=== PATIENT | female | born 2000 | race Caucasian/White ===

== ENCOUNTER 2022-04-23 20:05 | Emergency (ER) | payer BC ==
[~2022-04-23] VITALS: Ht 180.3 cm; Wt 73.0 kg
[2022-04-23 20:40] VITALS: BP 153/84
== END 2022-04-24 01:48 | disposition left against medical advice (07) ==
LOC: ER 20:05
DX: Z53.21 Procedure and treatment not carried out due to patient leaving prior to being seen by health care provider (principal)